=== PATIENT | female | born 1985 | race African-American/Black ===

== ENCOUNTER 2019-09-08 21:23 | Emergency (ER) | payer BC, OTHER ==
[~2019-09-08] VITALS: Ht 157.5 cm; Wt 97.5 kg
[2019-09-08] MEDS ORDERED: NOHOMEMEDICATIONS (21:33)
[2019-09-08 22:06] LABS: ABSOLUTE NEUTROPHILS 4.4 thou/uL (1.4-8.2); BASOPHILS 0.7 % (0.0-2.0); EOSINOPHILS 1.5 % (0.0-3.0); HEMOGLOBIN 12.8 gm/dL (12.0-15.0); LYMPHOCYTES 37.4 % (24.0-44.0); MCH 26.2 pg (26.0-34.0); MCHC 33.7 g/dL (28.0-37.0); MCV 77.8 fL (80.0-100.0); MONOCYTES 10.8 % (1.0-8.0); PLATELET COUNT 364 thou/uL (150-400); POLYS 49.6 % (36.0-66.0); RBC 4.89 mil/uL (4.20-5.00); RDW 14.9 % (10.5-14.5); WBC 8.9 thou/uL (4.0-11.0)
[2019-09-08 22:08] LABS: CALCIUM 8.9 mg/dL (8.5-10.1); CREATININE 0.8 mg/dL (0.6-1.0); POTASSIUM 3.3 mmol/L (3.5-5.1)
[2019-09-08 22:14] LABS: ALBUMIN 4.3 g/dL (3.4-5.0); TOTAL BILIRUBIN 0.5 mg/dL (0.2-1.0); TOTAL PROTEIN 8.6 g/dL (6.4-8.2)
[2019-09-08 22:44] LABS: URINE BILIRUBIN 1+ (Negative); URINE BLOOD 2+ (Negative); URINE CLARITY CLEAR; URINE COLOR YELLOW; URINE GLUCOSE-RANDOM* NEGATIVE (Negative); URINE KETONES 2+ (Negative); URINE LEUKOCYTES-REFLEX NEGATIVE (Negative); URINE NITRITE-REFLEX NEGATIVE (Negative); URINE PROTEIN (DIPSTICK) 1+ (Negative); URINE SPECIFIC GRAVITY >= 1.030 (1.005-1.035); URINE UROBILINOGEN 0.2 E.U./dl (0.2-1.0)
[2019-09-08 22:47] LABS: ICTOTEST (BILI CONFIRMATORY) Positive (Negative)
[2019-09-08 22:50] LABS: BACTERIA-REFLEX 1-9 Few /HPF (None Seen); CASTS None Seen /LPF (None Seen); CRYSTALS None Seen /LPF (None Seen); MUCUS 0-3 Light strn/LPF (None Seen); SQUAMOUS 0-3 Few /LPF (0-3); URINE RBC 3-10 Few /HPF (0-2); URINE WBC-REFLEX 0-5 Rare /HPF (0-5)
[2019-09-08] MEDS ORDERED: ZOFRAN ODT4 MG PO (22:51)
[2019-09-08] MEDS ORDERED: BENTYL 20 MG TA20 M1 PO (22:51)
[2019-09-08] MEDS ORDERED: IBUPROFEN 600600 M1 PO (22:51)
[2019-09-08 23:22] VITALS: BP 122/63
== END 2019-09-08 23:25 | disposition home or self-care (01) ==
LOC: ER 21:23
PROVIDERS: Emergency Medicine
DX: K52.9 Noninfective gastroenteritis and colitis, unspecified (principal); R11.2 Nausea with vomiting, unspecified